=== PATIENT | female | born 1995 | race American Indian/Alaskan Native ===

== ENCOUNTER 2017-12-12 04:08 | Emergency (ER) | payer OTHER ==
[2017-12-12 04:14] VITALS: BP 130/73
[2017-12-12] MEDS ORDERED: DELTASONE PO ONE (09:39)
[2017-12-12] MEDS ORDERED: TYLENOL PO ONE (09:39)
--- NOTE | 2017-12-12 10:28 | Emergency Department Report ---
Minor Respiratory - HPI Chief Complaint: Upper Respiratory Infection Stated Complaint: FLU SX Time Seen by Provider: 12/12/17 09:04 Duration: 2 Days Severity: mild Minor Respiratory: Yes Sore Throat, Yes Able to Tolerate Fluids, Yes Cough, Yes Fever, No Rhinorrhea, No Ear Pain, No Sick Contacts, No Hemoptysis, No Chest Pain, No Shortness of Breath Other History: 22-year-old female presents to ED complaining of fever cough and body aches 2 days. Patient states she is continuing to yellow productive cough for the past 2 days. Patient states intermittently bloody aches and sore throat. She states she is able to tolerate food and fluids okay. She denies nausea vomiting, chest pain, shortness of breath ED Review of Systems ROS: Stated complaint: FLU SX Other details as noted in HPI Constitutional: denies: chills, fever Eyes: denies: eye pain, eye discharge, vision change ENT: denies: ear pain, throat pain Respiratory: denies: cough, shortness of breath, wheezing Cardiovascular: denies: chest pain, palpitations Endocrine: no symptoms reported Gastrointestinal: denies: abdominal pain, nausea, diarrhea Genitourinary: denies: urgency, dysuria, discharge Musculoskeletal: denies: back pain, joint swelling, arthralgia Skin: denies: rash, lesions Neurological: denies: headache, weakness, paresthesias Psychiatric: denies: anxiety, depression Hematological/Lymphatic: denies: easy bleeding, easy bruising ED Past Medical Hx - Past Medical History Previous Medical History?: Yes Hx GERD: Yes - Surgical History Past Surgical History?: No - Social History Smoking Status: Never Smoker Substance Use Type: None - Medications Home Medications: Home Medications Medication Instructions Recorded Confirmed Last Taken Type D-Methorphan/PE/Acetaminophen 1 each PO Q6H #24 tablet 12/12/17 Unknown Rx [Tylenol Cold Max Day Caplet] Ibuprofen [Motrin] 800 mg PO Q8HR PRN #30 tablet 12/12/17 Unknown Rx guaiFENesin [Robitussin] 200 mg PO Q6H #80 ml 12/12/17 Unknown Rx Minor Respiratory Exam - Exam General: Vital signs noted. No distress. Alert and acting appropriately. HEENT: Yes Moist Mucous Membranes, No Pharyngeal Erythema, No Pharyngeal Exudates, No Rhinorrhea, No Conjuctival Injection, No Frontal Tenderness, No Maxillary Tenderness Ear: Neither TM Bulge, Neither TM Erythema, Neither EAC Pain, Neither EAC Discharge Neck: Yes Supple, No Adenopathy Lungs: Yes Good Air Exchange, No Wheezes, No Ronchi, No Stridor, No Cough, No Labored Respirations, No Retractions, No Use of Accessory Muscles, No Other Abnormal Lung Sounds Heart: Yes Regular, No Murmur Abdomen: Yes Normal Bowel Sounds, No Tenderness, No Peritoneal Signs Skin: No Rash, No Edema Neurologic: Alert and oriented, no deficits. Musculoskeletal: Unremarkable. ED Course Vital Signs 12/12/17 12/12/17 04:10 05:39 Temperature 100.9 F H 100.5 F H Pulse Rate 96 H 104 H Respiratory 20 20 Rate Blood Pressure 130/73 130/73 O2 Sat by Pulse 98 97 Oximetry ED Medical Decision Making - Radiology Data Radiology results: report reviewed, image reviewed ROUTINE CHEST, TWO VIEWS: HISTORY: Cough, fever. The trachea, heart, mediastinal contour, lung franz and bony thorax are unremarkable. IMPRESSION: Unremarkable chest x-ray. Transcribed By: TTR Dictated By: KIANA BAPTISTE JR, MD Electronically Authenticated By: KIANA BAPTISTE JR, MD Signed Date/Time: 12/12/17 1042 - Medical Decision Making 22-year-old female presents with flulike symptoms. Fever resolved no fever during the ED stay. Chest x-ray ordered, Patient received prednisone Tylenol and Robitussin ED. Discussed with pt symptomatic relief with [id number] medications. Discussed continue Tylenol or Motrin as needed for fever and pain. Discussed increase fluids and diet intake. Discussed rest much needed. Discussed daily vitamin C for immune booster. Discussed follow-up with pcp in 3-5 days. Patient's mother verbally states she understands and will comply the following instructions and follow-up Vital signs stable. Patient is in no acute distress Critical care attestation.: If time is entered above; I have spent that time in minutes in the direct care of this critically ill patient, excluding procedure time. ED Disposition Clinical Impression: URI (upper respiratory infection) Qualifiers: URI type: unspecified URI Qualified Code(s): J06.9 - Acute upper respiratory infection, unspecified Disposition: TO HOME OR SELFCARE Is pt being admited?: No Does the pt Need Aspirin: No Condition: Stable Instructions: Upper Respiratory Infection (ED), Viral Syndrome (ED) Additional Instructions: Make sure to follow up with the primary care physician as discussed. Take all your medications as you've been prescribed. If you have any worsening symptoms or develop new symptoms please return to ED immediately. Prescriptions: D-Methorphan/PE/Acetaminophen [Tylenol Cold Max Day Caplet] 1 each PO Q6H #24 tablet guaiFENesin [Robitussin] 200 mg PO Q6H #80 ml Ibuprofen [Motrin] 800 mg PO Q8HR PRN #30 tablet PRN Reason: Pain Referrals: HERON GUZMAN MD [Primary Care Provider] - 3-5 Days LENIN MCKENZIE MD [Referring] - 3-5 Days [facility] [Outside] - 3-5 Days [facility] [Outside] - 3-5 Days Forms: Accompanied Note, Work/School Release Form(ED) Time of Disposition: 11:03
--- NOTE | 2017-12-12 10:47 | XRay Report ---
ROUTINE CHEST, TWO VIEWS: HISTORY: Cough, fever. The trachea, heart, mediastinal contour, lung franz and bony thorax are unremarkable. IMPRESSION: Unremarkable chest x-ray.
== END 2017-12-12 12:06 | disposition home or self-care (01) ==
LOC: ED 04:08
DX: J06.9 Acute upper respiratory infection, unspecified (principal); K21.9 Gastro-esophageal reflux disease without esophagitis
CPT/HCPCS: 71046; 87400; 99283; J7512